=== PATIENT | male | born 2005 | race Caucasian/White ===

== ENCOUNTER 2025-04-21 01:25 | Emergency (ER) | payer OTHER ==
[2025-04-21] MEDS: Ketorolac 30 MG/ML SDV IM ONE (02:25)
[2025-04-21] MEDS: Bupivacaine 0.5%/EPINEPHrine 1:200,000 50 ML MDV NERVRT ONE (02:54)
== END 2025-04-21 03:32 | disposition home or self-care (01) ==
LOC: JP.ED 01:25
DX: K08.89 Other specified disorders of teeth and supporting structures (principal); Z79.899 Other long term (current) drug therapy
CPT/HCPCS: 64400; 96372; 99282; J1885; J2003; J3490